=== PATIENT | male | born 1970 | race Two or more races ===

== ENCOUNTER 2024-08-13 13:34 | Inpatient (IN) | payer OTHER ==
[~2024-08-13] VITALS: Ht 175.3 cm; Wt 99.8 kg
[2024-08-13] MEDS ORDERED: LISINOPRIL20 MG PO (15:26)
[2024-08-13] MEDS ORDERED: HYDRALAZINE HCL25 MG PO (15:26)
[2024-08-13] MEDS ORDERED: VERELAN PM200 MG PO (15:26)
[2024-08-13] MEDS ORDERED: CRESTOR40 MG PO (15:27)
[2024-08-13] MEDS ORDERED: SYNTHROID100 MCG PO (15:27)
[2024-08-13] MEDS ORDERED: OMEPRAZOLE40 MG PO (15:27)
[2024-08-13] MEDS ORDERED: ZETIA10 MG PO (15:27)
[2024-08-13] MEDS ORDERED: ALLEGRA ALLERG180 MG PO (15:28)
[2024-08-13] MEDS ORDERED: ASA81 MG PO (15:28)
[2024-08-13] MEDS ORDERED: ADCIRCA20 MG PO (15:28)
[2024-08-13] MEDS ORDERED: HUMALOG100 UNIT/2 SUBCUTANEO (15:31)
[2024-08-13] MEDS ORDERED: LANTUS SOL100 UNIT/1 SUBCUTANEO (15:32)
[2024-08-13] MEDS ORDERED: ONDANSETRON HCL 2 MG/ML VIAL IV ONE (16:30)
[2024-08-13] MEDS ORDERED: 0.9 % SODIUM CHLORIDE 1,000 ML IV ONE (16:30)
[2024-08-13] MEDS ORDERED: FAMOtidine 10 MG/ML (4ML VIAL) IV ONE (16:30)
[2024-08-13] MEDS ORDERED: ONDANSETRON HCL 2 MG/ML VIAL ONE (16:35)
[2024-08-13] MEDS ORDERED: FAMOTIDINE/PF 20 MG/2 ML VIAL ONE (16:35)
[2024-08-13] MEDS ORDERED: BARIUM SULFATE 450 ML ORAL.SUSP PO ONE (16:36)
[2024-08-13 17:15] LABS: HEMATOCRIT 39.7 % (39.0-48.0); MEAN CELL VOLUME 72.5 fL (80.0-100.00); MEAN CORPUSCULAR HEMOGLOBIN 23.8 pg (27.00-32.0); MEAN CORPUSCULAR HGB CONC 32.8 g/dl (32.0-36.0); PLATELET COUNT 233 K/uL (150-450); RED BLOOD COUNT 5.48 M/uL (4.00-6.00); RED CELL DISTRIBUTION WIDTH 15.2 % (11.5-14.5)
[2024-08-13 17:17] LABS: URINE APPEARANCE Clear; URINE BILIRRUBIN Negative (NEGATIVE); URINE BLOOD Negative; URINE COLOR Yellow; URINE GLUCOSE Negative (NEGATIVE); URINE LEUKOCYTE Negative; URINE NITRATE Negative; URINE PROTEIN Negative (NEGATIVE); URINE UROBILINOGEN 0.2 E.U./dl
[2024-08-13 17:25] LABS: URINE BACTERIA 3.6 uL (0.0-1933); URINE CAST 0.29 uL (0.0-1.40); URINE EPITHELIAL CELLS 1.2 uL (0.0-38.8); URINE KETONE 40 (NEGATIVE); URINE RBC 0.5 uL (0.0-20.8); URINE WBC 1.1 uL (0.0-23.2)
[2024-08-13 17:33] LABS: INR 1.01; PARTIAL THROMBOPLASTIN TIME 30.8 SECONDS (22.0-34.0)
[2024-08-13 17:38] LABS: ALBUMIN 3.4 gm/dL (3.4-5.0); BILIRUBIN TOTAL 0.59 mg/dL (0.3-1.2); BILIRUBIN,CONJUGATED 0.19 mg/dL (0.0-0.2); BILIRUBIN,UNCONJUGATED 0.4 mg/dL (0.0-0.6); CALCIUM 9.7 mg/dL (8.5-10.1); CREATININE SERUM 1.05 mg/dL (0.70-1.30); GFR 73.06; POTASSIUM 4.13 mEq/L (3.5-5.1); TOTAL PROTEIN 7.4 gm/dL (6.4-8.2)
[2024-08-13] MEDS ORDERED: CEFTRIAXONE SODIUM 2,000 MG in 0.9 % SODIUM CHLORIDE 100 ML IV SCH (22:44)
[2024-08-13] MEDS ORDERED: METRONIDAZOLE/SODIUM CHLORIDE 100 ML IV SCH (22:44)
[2024-08-13] MEDS ORDERED: ACETAMINOPHEN 500 MG GEL..CAP PO PRN (22:45)
[2024-08-13] MEDS ORDERED: 0.9 % SODIUM CHLORIDE 1,000 ML IV SCH (22:45)
[2024-08-13] MEDS ORDERED: THIAMINE HCL 100 MG/ML 2 ML VIAL IV SCH (22:45)
[2024-08-13] MEDS ORDERED: ONDANSETRON HCL 4 MG in 0.9 % SODIUM CHLORIDE 50 ML IV PRN (22:45)
[2024-08-14] MEDS ORDERED: LEVOTHYROXINE SODIUM 100 MCG TABLET PO SCH (06:00)
[2024-08-14 08:33] VITALS: BP 138/87; O2SAT 95
[2024-08-14] MEDS ORDERED: VERAPAMIL HCL 120 MG TABLET PO SCH (09:00)
[2024-08-14] MEDS ORDERED: FAMOTIDINE/PF 20 MG in 0.9 % SODIUM CHLORIDE 8 ML IV PUSH SCH (09:00)
[2024-08-14] MEDS ORDERED: LISINOPRIL 20 MG TABLET PO SCH (09:00)
[2024-08-14 12:16] LABS: FECAL LEUKOCYTES POSITIVE (NEGATIVE)
[2024-08-14] MEDS ORDERED: LACTOBACILLUS ACIDOPHILUS 1 CAP CAP PO SCH (13:10)
[2024-08-14 16:32] VITALS: BP 134/62; O2SAT 97
[2024-08-14] MEDS ORDERED: DIPHENHYDRAMINE HCL 50 MG/ML VIAL 1ML IV STA (21:46)
[2024-08-14] MEDS ORDERED: DIPHENHYDRAMINE HCL 50 MG/ML VIAL 1ML IV PRN (22:00)
[2024-08-15 01:21] VITALS: BP 149/80; O2SAT 98
[2024-08-15 07:03] LABS: HEMATOCRIT 35.5 % (39.0-48.0); HEMOGLOBIN 12.2 g/dL (13-16.00); MEAN CELL VOLUME 71.2 fL (80.0-100.00); MEAN CORPUSCULAR HEMOGLOBIN 24.4 pg (27.00-32.0); MEAN CORPUSCULAR HGB CONC 34.3 g/dl (32.0-36.0); PLATELET COUNT 217 K/uL (150-450); RED BLOOD COUNT 4.99 M/uL (4.00-6.00); RED CELL DISTRIBUTION WIDTH 15.8 % (11.5-14.5)
[2024-08-15 07:43] LABS: BILIRUBIN TOTAL 0.45 mg/dL (0.3-1.2); CALCIUM 8.7 mg/dL (8.5-10.1); CREATININE SERUM 0.92 mg/dL (0.70-1.30); GFR 85.1; MAGNESIUM 1.8 mg/dL (1.8-2.4); PHOSPHOROUS 3.7 mg/dL (2.5-4.9); POTASSIUM 4.56 mEq/L (3.5-5.1)
[2024-08-15 07:52] LABS: C-REACTIVE PROTEIN 2.32 MG/DL (0.00-0.29)
[2024-08-15] MEDS ORDERED: FAMOTIDINE/PF 20 MG/2 ML VIAL ONE (08:15)
[2024-08-15] MEDS ORDERED: CEFTRIAXONE SODIUM 2,000 MG VIAL ONE (08:16)
[2024-08-15] MEDS ORDERED: VERAPAMIL HCL 120 MG TABLET.SA PO SCH (09:00)
[2024-08-15 09:12] VITALS: BP 122/63; O2SAT 96
[2024-08-15 17:40] VITALS: BP 104/44; O2SAT 97
[2024-08-15] MEDS ORDERED: FAMOTIDINE/PF 20 MG in 0.9 % SODIUM CHLORIDE 8 ML IV PUSH SCH (21:00)
[2024-08-16 00:53] VITALS: BP 150/65; O2SAT 97
[2024-08-16 06:57] LABS: ALBUMIN 2.9 gm/dL (3.4-5.0); BILIRUBIN TOTAL 0.4 mg/dL (0.3-1.2); CALCIUM 8.1 mg/dL (8.5-10.1); CREATININE SERUM 0.94 mg/dL (0.70-1.30); GFR 83.02; GLOBULINA 2.7 G/DL (2.4-3.5); MAGNESIUM 1.8 mg/dL (1.8-2.4); PHOSPHOROUS 3.1 mg/dL (2.5-4.9); POTASSIUM 4.37 mEq/L (3.5-5.1); TOTAL PROTEIN 5.6 gm/dL (6.4-8.2)
[2024-08-16 07:19] LABS: C-REACTIVE PROTEIN 1.66 MG/DL (0.00-0.29)
[2024-08-16 09:28] VITALS: BP 142/63; O2SAT 95
== END 2024-08-16 13:59 | disposition home or self-care (01) | DRG 641 ==
LOC: ER 13:36 → MEDI 22:47
PROVIDERS: General Practice; Internal Medicine Infectious Disease; ADMIT Internal Medicine; ATTEND Internal Medicine
PROC: BW21YZZ Computerized Tomography (CT Scan) of Abdomen and Pelvis using Other Contrast (ICD-10-PCS; principal; 2024-08-13)
DX: E87.1 Hypo-osmolality and hyponatremia (principal); I10 Essential (primary) hypertension; E11.9 Type 2 diabetes mellitus without complications; Z79.4 Long term (current) use of insulin; K52.9 Noninfective gastroenteritis and colitis, unspecified

== ENCOUNTER 2024-10-30 16:12 | Inpatient (IN) | payer OTHER ==
[~2024-10-30] VITALS: Ht 152.4 cm; Wt 96.2 kg
[~2024-10-30 16:12] MED LIST: ADCIRCA20 MG PO; ALLEGRA ALLERG180 MG PO; ASA81 MG PO; CRESTOR40 MG PO; HUMALOG100 UNIT/2 SUBCUTANEO; HYDRALAZINE HCL25 MG PO; LANTUS SOL100 UNIT/1 SUBCUTANEO; LISINOPRIL20 MG PO; OMEPRAZOLE40 MG PO; SYNTHROID100 MCG PO; VERELAN PM200 MG PO; ZETIA10 MG PO
[2024-10-30] MEDS ORDERED: ZETIA10 MG (16:21)
[2024-10-30] MEDS ORDERED: GRALISE600 MG (16:21)
[2024-10-30] MEDS ORDERED: [UNRECOGNIZED DRUG - OTHER] (16:21)
--- NOTE | 2024-10-30 16:22 | NUR ---
SE RECIBE PTE ALERTA Y ORIENTADO EL CUAL REFIERE VENIR POR DOLOR E INFLAMACION EN PIERNA IZQUIERDA. SE OBSERVA AREA ENROJECIDA EN PIERNA DERECHA Y CALIENTE AL TACTO. PTE REFIERE QUE MINA EL ENROJECIMIENTO BALBIR. SE MIDEN S/V A PTE Y SE UBICA.
[2024-10-30] MEDS ORDERED: PIPERACILLIN/TAZOBACTAM SODIUM 3.375 GM VIAL IV ONE ×2 (16:45→16:57)
[2024-10-30] MEDS ORDERED: 0.9 % SODIUM CHLORIDE 1,000 ML IV SCH ×2 (16:45→21:00)
--- NOTE | 2024-10-30 17:50 | NUR ---
BERTHA GELLER REALIZA ORDENES MEDICAS EN SOTOMAYOR TOTALIDAD.
[2024-10-30 17:51] LABS: HEMATOCRIT 39.9 % (39.0-48.0); HEMOGLOBIN 12.8 g/dL (13-16.00); MEAN CELL VOLUME 73.4 fL (80.0-100.00); MEAN CORPUSCULAR HEMOGLOBIN 23.6 pg (27.00-32.0); MEAN CORPUSCULAR HGB CONC 32.2 g/dl (32.0-36.0); PLATELET COUNT 219 K/uL (150-450); RED BLOOD COUNT 5.44 M/uL (4.00-6.00); RED CELL DISTRIBUTION WIDTH 17.2 % (11.5-14.5)
[2024-10-30 17:55] LABS: ERYTHROCYTE SEDIMENTATION RATE 41 mm/hr
[2024-10-30 18:24] LABS: ALBUMIN 3.7 gm/dL (3.4-5.0); BILIRUBIN TOTAL 0.33 mg/dL (0.3-1.2); CALCIUM 9.6 mg/dL (8.5-10.1); CREATININE SERUM 1.2 mg/dL (0.70-1.30); GFR 62.63; GLOBULINA 4.2 G/DL (2.4-3.5); POTASSIUM 4.34 mEq/L (3.5-5.1); TOTAL PROTEIN 7.9 gm/dL (6.4-8.2)
[2024-10-30 18:25] LABS: C-REACTIVE PROTEIN 2.85 MG/DL (0.00-0.29)
[2024-10-30] MEDS ORDERED: VANCOMYCIN HCL 1,000 MG VIAL IV SCH (20:54)
[2024-10-30] MEDS ORDERED: ACETAMINOPHEN 500 MG GEL..CAP PO PRN (21:00)
[2024-10-30] MEDS ORDERED: ONDANSETRON HCL 4 MG in 0.9 % SODIUM CHLORIDE 50 ML IV PRN (21:00)
[2024-10-30] MEDS ORDERED: 0.9 % SODIUM CHLORIDE 1,000 ML IV ONE (21:00)
[2024-10-30 23:49] VITALS: BP 150/76
[2024-10-31] MEDS ORDERED: PIPERACILLIN/TAZOBACTAM SODIUM 3.375 GM in DEXTROSE 5 % IN WATER 100 ML IV SCH
[2024-10-31] MEDS ORDERED: LEVOTHYROXINE SODIUM 100 MCG TABLET PO SCH (06:00)
[2024-10-31] MEDS ORDERED: hydrALAZINE HCL 25 MG TABLET PO SCH (09:00)
[2024-10-31] MEDS ORDERED: GABAPENTIN 600 MG TABLET PO SCH (09:00)
[2024-10-31] MEDS ORDERED: FAMOTIDINE/PF 20 MG in 0.9 % SODIUM CHLORIDE 8 ML IV PUSH SCH (09:00)
[2024-10-31] MEDS ORDERED: LISINOPRIL 20 MG TABLET PO SCH (09:00)
[2024-10-31] MEDS ORDERED: ENOXAPARIN SODIUM 40 MG/0.4 ML SYRINGE SUBCUTANEO SCH (09:00)
[2024-10-31] MEDS ORDERED: VERAPAMIL HCL 240 MG TABLET.SA PO SCH (09:00)
[2024-10-31 09:40] VITALS: BP 166/89; O2SAT 98
[2024-10-31 11:01] LABS: INR < 0.93; PARTIAL THROMBOPLASTIN TIME 26.8 SECONDS (22.0-34.0); PROTHROMBIN TIME 10.2 SECONDS (9.0-11.5)
[2024-10-31 11:02] LABS: D DIMER 2.35 MG/L
[2024-10-31 11:09] LABS: PH,URINE 5.5 (5.0-8.0); URINE APPEARANCE Clear; URINE BACTERIA 6.1 uL (0.0-1933); URINE BILIRRUBIN Negative (NEGATIVE); URINE BLOOD Negative; URINE COLOR Yellow; URINE GLUCOSE Negative (NEGATIVE); URINE KETONE Negative (NEGATIVE); URINE LEUKOCYTE Negative; URINE NITRATE Negative; URINE PROTEIN Negative (NEGATIVE); URINE UROBILINOGEN 0.2 E.U./dl
[2024-10-31 11:11] LABS: URINE EPITHELIAL CELLS 0.6 uL (0.0-38.8); URINE RBC 1.3 uL (0.0-20.8); URINE WBC 0.6 uL (0.0-23.2)
[2024-10-31 13:39] LABS: D DIMER 3.44 MG/L; INR 0.97; PARTIAL THROMBOPLASTIN TIME 29.6 SECONDS (22.0-34.0); PROTHROMBIN TIME 10.6 SECONDS (9.0-11.5)
[2024-10-31] MEDS ORDERED: ENOXAPARIN SODIUM 80 MG/0.8 ML SYRINGE SUBCUTANEO SCH (17:00)
[2024-10-31 18:54] VITALS: BP 123/76; O2SAT 97
[2024-10-31] MEDS ORDERED: VANCOMYCIN HCL 5 MG/ML REDILUIDO IV SCH (21:00)
[2024-10-31] MEDS ORDERED: CLONAZEPAM 0.5 MG TABLET PO STA (23:39)
[2024-11-01 01:33] VITALS: BP 148/67
[2024-11-01 07:59] LABS: HEMATOCRIT 34.4 % (39.0-48.0); HEMOGLOBIN 11.5 g/dL (13-16.00); MEAN CELL VOLUME 71.9 fL (80.0-100.00); MEAN CORPUSCULAR HGB CONC 33.3 g/dl (32.0-36.0); PLATELET COUNT 188 K/uL (150-450); RED BLOOD COUNT 4.79 M/uL (4.00-6.00); RED CELL DISTRIBUTION WIDTH 17.6 % (11.5-14.5)
[2024-11-01 08:32] LABS: ALBUMIN 2.8 gm/dL (3.4-5.0); BILIRUBIN TOTAL 0.38 mg/dL (0.3-1.2); CALCIUM 8.6 mg/dL (8.5-10.1); GFR 77.3; GLOBULINA 3.1 G/DL (2.4-3.5); MAGNESIUM 2.2 mg/dL (1.8-2.4); PHOSPHOROUS 3.6 mg/dL (2.5-4.9); POTASSIUM 4.75 mEq/L (3.5-5.1); TOTAL PROTEIN 5.9 gm/dL (6.4-8.2)
[2024-11-01 08:55] LABS: C-REACTIVE PROTEIN 1.97 MG/DL (0.00-0.29)
[2024-11-01] MEDS ORDERED: LINEZOLID 600 MG TABLET PO SCH (09:00)
[2024-11-01] MEDS ORDERED: LACTOBACILLUS ACIDOPHILUS 1 CAP CAP PO SCH (09:00)
[2024-11-01 11:11] VITALS: BP 160/76; O2SAT 99
[2024-11-01 17:38] VITALS: BP 120/52
[2024-11-01] MEDS ORDERED: FAMOtidine 20 MG TABLET PO SCH (21:00)
[2024-11-02 03:13] VITALS: BP 94/66; O2SAT 96
[2024-11-02 08:00] VITALS: BP 123/59
[2024-11-02] MEDS ORDERED: AMINO ACIDS 1 EACH TABLET PO SCH (09:00)
[2024-11-02 17:11] VITALS: BP 93/53
[2024-11-03 01:33] VITALS: BP 94/57; O2SAT 98
[2024-11-03 08:00] VITALS: BP 179/84; O2SAT 96
[2024-11-03] MEDS ORDERED: SODIUM CHLORIDE 0.45 % 1,000 ML IV SCH (14:30)
[2024-11-03 17:29] VITALS: BP 85/66
[2024-11-03 17:48] VITALS: BP 125/60
[2024-11-04 00:43] VITALS: BP 100/50
[2024-11-04 07:08] LABS: ALBUMIN 2.9 gm/dL (3.4-5.0); BILIRUBIN TOTAL 0.47 mg/dL (0.3-1.2); CREATININE SERUM 0.98 mg/dL (0.70-1.30); GFR 79.12; GLOBULINA 2.8 G/DL (2.4-3.5); POTASSIUM 4.35 mEq/L (3.5-5.1); TOTAL PROTEIN 5.7 gm/dL (6.4-8.2)
[2024-11-04 07:09] LABS: C-REACTIVE PROTEIN 1.58 MG/DL (0.00-0.29); HEMATOCRIT 33.9 % (39.0-48.0); MEAN CELL VOLUME 73.1 fL (80.0-100.00); MEAN CORPUSCULAR HEMOGLOBIN 23.8 pg (27.00-32.0); MEAN CORPUSCULAR HGB CONC 32.5 g/dl (32.0-36.0); PLATELET COUNT 200 K/uL (150-450); RED BLOOD COUNT 4.64 M/uL (4.00-6.00); RED CELL DISTRIBUTION WIDTH 17.3 % (11.5-14.5)
[2024-11-04 10:10] VITALS: BP 109/50; O2SAT 98
[2024-11-04] MEDS ORDERED: DEXTROSE 50 % IN WATER 0.5 G/ML DISP.SYRIN IV PRN (15:45)
[2024-11-04] MEDS ORDERED: INSULIN LISPRO 1,000 UNIT/10 ML UNITS SUBCUTANEO PRN (15:45)
[2024-11-04 16:48] VITALS: BP 126/73
[2024-11-04] MEDS ORDERED: BENZONATATE 100 MG CAPSULE PO SCH (17:00)
[2024-11-04] MEDS ORDERED: GUAIFEN/DEXTROMETHORPHAN/PE 10 ML BLIST.PACK PO SCH (17:00)
[2024-11-04] MEDS ORDERED: LEVALBUTEROL HCL 0.63 MG/3 ML SOLUTION IH SCH (17:00)
[2024-11-04] MEDS ORDERED: PANTOPRAZOLE SODIUM 40 MG/VIAL VIAL IV NR (20:00)
[2024-11-04] MEDS ORDERED: LORATADINE 10 MG TABLET PO SCH (21:00)
[2024-11-05 02:00] VITALS: BP 102/43; O2SAT 93
[2024-11-05] MEDS ORDERED: ONDANSETRON HCL 4 MG in 0.9 % SODIUM CHLORIDE 50 ML IV PRN (03:30)
[2024-11-05 08:53] VITALS: BP 119/73; O2SAT 94
[2024-11-05] MEDS ORDERED: PROMETHAZINE HCL 25 MG/ML AMPUL IV PRN (15:30)
[2024-11-05] MEDS ORDERED: PROMETHAZINE HCL 25 MG/ML AMPUL IV ONE (15:30)
[2024-11-05 17:31] VITALS: BP 90/50; O2SAT 97
[2024-11-05] MEDS ORDERED: LINEZOLID IN DEXTROSE 5% 300 ML IV SCH (21:00)
[2024-11-06 02:35] VITALS: BP 128/44; O2SAT 93
[2024-11-06 08:14] VITALS: BP 103/64; O2SAT 95
[2024-11-06 17:47] VITALS: BP 113/48; O2SAT 96
[2024-11-07 02:59] VITALS: BP 90/51; O2SAT 93
[2024-11-07 08:15] VITALS: BP 111/51; O2SAT 96
[2024-11-07] MEDS ORDERED: PIPERACILLIN/TAZOBACTAM SODIUM 3.375 GM VIAL IV ONE (16:13)
[2024-11-07 17:48] VITALS: BP 144/55; O2SAT 100
[2024-11-07] MEDS ORDERED: PIPERACILLIN/TAZOBACTAM SODIUM 3.375 GM in DEXTROSE 5 % IN WATER 100 ML IV SCH (18:00)
[2024-11-08] VITALS: BP 117/60; O2SAT 95
[2024-11-08 06:28] LABS: HEMATOCRIT 31.8 % (39.0-48.0); HEMOGLOBIN 10.3 g/dL (13-16.00); MEAN CORPUSCULAR HEMOGLOBIN 23.4 pg (27.00-32.0); MEAN CORPUSCULAR HGB CONC 32.5 g/dl (32.0-36.0); PLATELET COUNT 204 K/uL (150-450); RED BLOOD COUNT 4.42 M/uL (4.00-6.00); RED CELL DISTRIBUTION WIDTH 16.6 % (11.5-14.5)
[2024-11-08 06:39] LABS: ALBUMIN 2.7 gm/dL (3.4-5.0); BILIRUBIN TOTAL 0.34 mg/dL (0.3-1.2); CALCIUM 8.5 mg/dL (8.5-10.1); CREATININE SERUM 0.78 mg/dL (0.70-1.30); GFR 102.96; MAGNESIUM 2.1 mg/dL (1.8-2.4); PHOSPHOROUS 2.8 mg/dL (2.5-4.9); POTASSIUM 3.59 mEq/L (3.5-5.1); TOTAL PROTEIN 5.7 gm/dL (6.4-8.2)
[2024-11-08 06:44] LABS: C-REACTIVE PROTEIN 3.08 MG/DL (0.00-0.29)
[2024-11-08 10:52] VITALS: BP 121/74; O2SAT 96
[2024-11-08] MEDS ORDERED: DIPHENHYDRAMINE HCL 50 MG/ML VIAL 1ML IV SCH (12:00)
[2024-11-08] MEDS ORDERED: BENZONATATE 200 MG CAPSULE PO SCH (13:00)
[2024-11-08 18:36] VITALS: BP 96/43
[2024-11-09 02:06] VITALS: BP 121/75; O2SAT 97
[2024-11-09 10:33] VITALS: BP 134/66; O2SAT 100
[2024-11-09 17:12] VITALS: BP 127/82; O2SAT 96
[2024-11-10 00:14] VITALS: BP 120/69; O2SAT 98
[2024-11-10 08:12] VITALS: BP 139/63
[2024-11-10] MEDS ORDERED: APIXABAN 5 MG TABLET PO SCH (11:33)
[2024-11-10 17:14] VITALS: BP 120/62
[2024-11-11 00:37] VITALS: BP 108/60; O2SAT 97
[2024-11-11 08:25] VITALS: BP 160/60
[2024-11-11 18:36] VITALS: BP 142/82
[2024-11-12 02:28] VITALS: BP 118/65; O2SAT 97
[2024-11-12 09:45] VITALS: BP 143/84; O2SAT 95
[2024-11-12] MEDS ORDERED: ELIQUIS5 MG PO (12:56)
== END 2024-11-12 14:01 | disposition home or self-care (01) | DRG 580 ==
LOC: ER 16:15 → MEDJ 21:46
PROVIDERS: General Practice; Internal Medicine Infectious Disease; Specialist; ADMIT Internal Medicine; ATTEND Internal Medicine
PROC: B54CZZZ Ultrasonography of Left Lower Extremity Veins (ICD-10-PCS; 2024-10-30)
PROC: BQ48ZZZ Ultrasonography of Left Knee (ICD-10-PCS; 2024-10-31)
PROC: B44HZZZ Ultrasonography of Bilateral Lower Extremity Arteries (ICD-10-PCS; 2024-10-31)
PROC: 0JBP3ZZ Excision of Left Lower Leg Subcutaneous Tissue and Fascia, Percutaneous Approach (ICD-10-PCS; principal; 2024-11-02)
PROC: BW21ZZZ Computerized Tomography (CT Scan) of Abdomen and Pelvis (ICD-10-PCS; 2024-11-05)
DX: L03.116 Cellulitis of left lower limb (principal); I82.4Z2 Acute embolism and thrombosis of unspecified deep veins of left distal lower extremity; N17.8 Other acute kidney failure; L97.828 Non-pressure chronic ulcer of other part of left lower leg with other specified severity; E11.628 Type 2 diabetes mellitus with other skin complications; Z79.4 Long term (current) use of insulin; L08.89 Other specified local infections of the skin and subcutaneous tissue; I87.2 Venous insufficiency (chronic) (peripheral); I10 Essential (primary) hypertension; E03.9 Hypothyroidism, unspecified